=== PATIENT | male | born 1955 | race African-American/Black ===

== ENCOUNTER 2018-10-05 00:35 | Emergency (ER) | payer BC ==
[~2018-10-05] VITALS: Ht 167.6 cm; Wt 86.2 kg
[~2018-10-05 00:35] MED LIST: DOXA2TAB PO; GABA-531 PO; LEVO500T20 PO; MORP30TA PO; NOR10 PO; SOM350 PO; TAMS-11 PO
[2018-10-05 00:43] VITALS: BP_SYST 153
== END 2018-10-05 01:00 | disposition home or self-care (01) ==
LOC: SED 00:35
DX: G62.9 Polyneuropathy, unspecified (principal); E11.9 Type 2 diabetes mellitus without complications; I10 Essential (primary) hypertension; Z79.899 Other long term (current) drug therapy
CPT/HCPCS: 99283

== ENCOUNTER 2019-09-19 21:09 | Inpatient (IN) | payer BC ==
[~2019-09-19] VITALS: Ht 167.6 cm; Wt 88.0 kg
[2019-09-19 22:00] VITALS: BP_SYST 153
--- NOTE | 2019-09-19 22:18 | NUR ---
Pt ambulatory to bed 1 for evaluation
[2019-09-19 22:40] LABS: BILIRUBIN,URINE NEGATIVE (NEGATIVE); CLARITY/URINE CLEAR (CLEAR); COLOR,URINE YELLOW (YELLOW); GLUCOSE,URINE 2+ (NEGATIVE); KETONES,URINE TRACE (NEGATIVE); LEUKOCYTE ESTERASE ,URINE NEGATIVE (NEGATIVE); NITRITE, URINE NEGATIVE (NEGATIVE); PROTEIN URINE 1+ (NEGATIVE); UROBILINOGEN,URINE 0.2 (0.2-1.0)
[2019-09-19 22:43] LABS: BLOOD, URINE TRACE (NEGATIVE)
[2019-09-19 22:48] LABS: WBC,URINE 0-3 /HPF (0-3)
[2019-09-19 22:49] LABS: BACTERIA,URINE FEW /HPF (None Seen)
--- NOTE | 2019-09-19 23:10 | NUR ---
# 20 gauge angiocath placed to RT AC. Use of asceptic technique. Opsite placed over site. Blood return noted. Blood for lab drawn from site. Flushed with 10 cc of normal saline. No evidence of infiltration noted. Patient tolerated well.
[2019-09-19] MEDS ORDERED: MORPHINE 4 MG/ML INJ. SYRINGE IVP ONE (23:15)
[2019-09-19] MEDS ORDERED: ONDANSETRON HCL 4 MG/2 ML VIAL IVP ONE (23:15)
[2019-09-19] MEDS ORDERED: NACL 0.9% 1,000 ML IV ONE (23:15)
--- NOTE | 2019-09-19 23:15 | NUR ---
Pt 64 YO male A&Ox4 C/O abdominal pain x 1 day. Pt reported recent diagnosis of kidney stones by his PCP. Pt denies any urinary symptoms, N/V or any other compaints at this time. Will continue to monitor.
[2019-09-19 23:25] LABS: BASOPHILS % (AUTO) 0.4 % (0.0-2.0); EOSINOPHILS # (AUTO) 0.1 K/uL (0.0-0.4); EOSINOPHILS % (AUTO) 0.8 % (0.0-4.0); HEMATOCRIT 37.7 % (36-54); HEMOGLOBIN 13.1 g/dL (14.0-18.0); LYMPHOCYTES # (AUTO) 1.7 K/uL (1.0-5.5); LYMPHOCYTES % (AUTO) 17.7 % (20.5-51.5); MEAN CORPUSCULAR HEMOGLOBIN 32 pg (27-31); MEAN CORPUSCULAR HGB CONC 35 % (32-36); MEAN CORPUSCULAR VOLUME 93 fL (79.0-98.0); MONOCYTES # (AUTO) 0.4 K/uL (0.0-1.0); MONOCYTES % (AUTO) 4.1 % (1.7-9.3); NEUTROPHILS # (AUTO) 7.6 K/uL (1.8-7.7); PLATELET COUNT (AUTO) 247 K/uL (130-430); RED BLOOD CELL COUNT(AUTO) 4.05 MIL/uL (4.2-6.2); RED CELL DISTRIBUTION WIDTH 12.4 % (9.0-15.0); WHITE BLOOD COUNT (AUTO) 9.8 K/uL (4.8-10.8)
[2019-09-19 23:34] LABS: INR 0.9 (0.80-1.20); PROTHROMBIN TIME 9.1 SECS (9.5-12.5)
--- NOTE | 2019-09-19 23:36 | NUR ---
Pt has been medicated with IV Fluids, Zofran and Morphine for abdominal pain. Will continue to monitor.
--- NOTE | 2019-09-19 23:42 | NUR ---
Patient transported to radiology via gurney, accompanied by rad staff.
[2019-09-19 23:43] LABS: CALCIUM 8.8 mg/dL (8.4-11.0); CREATININE 1.01 mg/dL (0.55-1.30); POTASSIUM 3.7 mmol/L (3.5-5.1)
[2019-09-19 23:49] LABS: ALBUMIN 3.6 g/dL (3.4-4.8); TOTAL BILIRUBIN 0.4 mg/dL (0.0-1.0)
--- NOTE | 2019-09-19 23:55 | NUR ---
Pt returned in stable condition
[2019-09-20] MEDS ORDERED: fentaNYL CITRATE/PF 100 MCG/2 ML AMP IVP ONE (00:15)
[2019-09-20] MEDS ORDERED: LIP10 PO (00:17)
[2019-09-20] MEDS ORDERED: MORP15TA PO (00:19)
[2019-09-20] MEDS ORDERED: ASPI-1153 PO (00:20)
[2019-09-20] MEDS ORDERED: REPA0.5T4 PO (00:20)
--- NOTE | 2019-09-20 01:28 | NUR ---
Pt is resting in bed and states relief after medication administration
--- NOTE | 2019-09-20 01:54 | NUR ---
Patient will be admitted to care of Dr. Dodd. Admitted to telemetry unit. Will go to room 101B. Belongings list completed. Complete and up to date summary report printed. SBAR report to be given at bedside with opportunity for questions.
--- NOTE | 2019-09-20 02:02 | NUR ---
ADMISSION NOTE Received patient from ER via [facility] under the care of Ju. Patient admitted with diagnosis of Pancreatitis. Patient is awake, alert, oriented X 4. Patient oriented to hospital room, call light, toileting, pain management and safety-teach back done. Patient informed that his nurse will be Ava PEDERSON and that his room number is 101B. Call light within reach. Will continue to monitor patient condition.
[2019-09-20 02:07] VITALS: BP_SYST 153
--- NOTE | 2019-09-20 02:18 | NUR ---
Transfer to telemetry via ACLS protocol. Licensed nurse present. IV present no signs or symptoms of infiltration.
--- NOTE | 2019-09-20 02:27 | NUR ---
SPOKE TO DR. CASTRO REGARDING PT'S REPORT OF SEVERE ABDOMINAL PAIN. NEW ORDER RECEIVED. WILL CARRY OUT.
[2019-09-20] MEDS ORDERED: HYDROmorphone 1 MG INJ. 1 MG/ML AMPUL IVP ONE (02:30)
--- NOTE | 2019-09-20 02:41 | NUR ---
PAIN/DILAUDID DILAUDID 1 MG IVP ADMINISTERED FOR PT'S SEVERE PAIN ORDERED ONE TIME DOSE. MEDICATION ACTIONS AND POTENTIAL SIDE EFFECTS EXPLAINED, PT VERBALIZED UNDERSTANDING. NO S/S OF ACUTE DISTRESS. SAFETY MAINTAINED. WILL MONITOR.
[2019-09-20] MEDS ORDERED: HYDROmorphone 1 MG INJ. 1 MG/ML AMPUL IM PRN (04:00)
--- NOTE | 2019-09-20 04:00 | NUR ---
DR. CASTRO ROUNDS PT SEEN AND EXAMINED.
[2019-09-20] MEDS ORDERED: NACL 0.9% 1,000 ML IV SCH (04:01)
[2019-09-20] MEDS ORDERED: ONDANSETRON HCL 4 MG/2 ML VIAL IVP PRN (04:15)
[2019-09-20] MEDS ORDERED: HYDROmorphone 1 MG INJ. 1 MG/ML AMPUL IVP PRN (04:15)
[2019-09-20] MEDS ORDERED: NACL 0.9% 1,000 ML IV ONE (04:15)
[2019-09-20] MEDS ORDERED: hydrALAZINE HCL 20 MG/ML VIAL IVP PRN (04:15)
[2019-09-20] MEDS: HYDROmorphone 2 MG/ML VIAL IVP PRN ×3 (04:51→22:23)
--- NOTE | 2019-09-20 04:51 | NUR ---
PAIN/DILAUDID DILAUDID 1 MG IVP ADMINISTERED FOR PT'S SEVERE PAIN ORDERED PRN. MEDICATION ACTIONS AND POTENTIAL SIDE EFFECTS EXPLAINED, PT VERBALIZED UNDERSTANDING. NO S/S OF ACUTE DISTRESS. SAFETY MAINTAINED. WILL MONITOR.
--- NOTE | 2019-09-20 05:10 | NUR ---
CONSULTATION PAGED/CALLED Reason for Consultation: SEVERE PANCREATITIS Person Who was Notified: LILA Consulting Physician: PETER. DOCTOR ADAM IS INSTALLATION MANAGER Senior Cytotechnologist Specialty: Ordering Physician: KIKI
[2019-09-20] MEDS: PIPERACILLIN/TAZO 3.375/DEX-IS 50 ML IV SCH ×4 (05:52→23:36)
--- NOTE | 2019-09-20 05:52 | NUR ---
ZOSYN ADMINISTERED SCHEDULED. NO S/S OF ADVERSE REACTION NOTED.
[2019-09-20] MEDS ORDERED: PIPERACILLIN/TAZOBACTAM 3.375 GM/VIAL (ZOSYN) IV ONE (05:58)
[2019-09-20] MEDS: INSULIN REGULAR, HUMAN 100 UNITS/ML, 10 ML VIAL (humuLIN R) SUBCUT PRN (06:18)
--- NOTE | 2019-09-20 06:18 | NUR ---
ACCUCHECK BLOOD SUGAR OF 191, PER MD ORDER NO INSULIN COVERAGE WHILE NPO.
--- NOTE | 2019-09-20 06:54 | NUR ---
CLOSING NOTE PATIENT IS STABLE AT THIS TIME. NO S/S OF RESPIRATORY DISTRESS. CALL LIGHT IN REACH. BED IS LOCKED, ALARMED, AND THE LOWEST POSITION. ALL NEEDS MET. WILL CONTINUE TO MONITOR UNTIL REPORT IS GIVEN TO AM NURSE BY BEDSIDE.
[2019-09-20 06:57] LABS: BASOPHILS % (AUTO) 0.4 % (0.0-2.0); EOSINOPHILS # (AUTO) 0.1 K/uL (0.0-0.4); EOSINOPHILS % (AUTO) 1.1 % (0.0-4.0); HEMATOCRIT 36.4 % (36-54); HEMOGLOBIN 12.7 g/dL (14.0-18.0); LYMPHOCYTES # (AUTO) 1.9 K/uL (1.0-5.5); LYMPHOCYTES % (AUTO) 19.2 % (20.5-51.5); MEAN CORPUSCULAR HEMOGLOBIN 32 pg (27-31); MEAN CORPUSCULAR HGB CONC 35 % (32-36); MEAN CORPUSCULAR VOLUME 93 fL (79.0-98.0); MONOCYTES # (AUTO) 0.6 K/uL (0.0-1.0); MONOCYTES % (AUTO) 5.7 % (1.7-9.3); NEUTROPHILS # (AUTO) 7.2 K/uL (1.8-7.7); NEUTROPHILS % (AUTO) 73.6 % (40.0-70.0); PLATELET COUNT (AUTO) 237 K/uL (130-430); RED BLOOD CELL COUNT(AUTO) 3.93 MIL/uL (4.2-6.2); RED CELL DISTRIBUTION WIDTH 12.6 % (9.0-15.0); WHITE BLOOD COUNT (AUTO) 9.8 K/uL (4.8-10.8)
[2019-09-20 07:29] LABS: ALBUMIN 3.2 g/dL (3.4-4.8); CALCIUM 8.4 mg/dL (8.4-11.0); CREATININE 0.72 mg/dL (0.55-1.30); POTASSIUM 3.6 mmol/L (3.5-5.1); TOTAL BILIRUBIN 0.6 mg/dL (0.0-1.0)
--- NOTE | 2019-09-20 07:35 | NUR ---
OPENING NOTES: RECEIVED PATIENT FORM DINNER COOK NURSE. PATIENT IS ASLEEP LAYING DOWN IN BED. PATIENT IS TOLERATING OXYGEN ON ROOM AIR WITH NO SIGNS OF INFILTRATION NOTED. IV SITE IS PATENT WITH NO SIGNS OF INFILTRATION NOTED. PATIENT IN STABLE CONDITION. SAFETY, FALL AND ASPIRATION PRECAUTIONS ARE IN PLACE. BED LOCKED IN LOWEST POSITION WITH CALL LIGHT IN REACH. WILL CONTINUE TO MONITOR PATIENT FOR ANY CHANGES.
[2019-09-20] MEDS: PANTOPRAZOLE SODIUM 40 MG/VIAL (PROTONIX) IVP SCH (08:12)
[2019-09-20] MEDS: ATORVASTATIN 10 MG TABLET PO SCH (08:12)
[2019-09-20] MEDS: amLODIPine BESYLATE 10 MG TABLET PO SCH (08:13)
[2019-09-20] MEDS: TAMSULOSIN HCL 0.4 MG CAP PO SCH (08:13)
[2019-09-20] MEDS: HYDROmorphone 1 MG INJ. 1 MG/ML AMPUL IVP PRN ×3 (08:14→15:53)
[2019-09-20 08:21] VITALS: BP_SYST 143
[2019-09-20] MEDS ORDERED: LR 1,000 ML IV ONE (08:30)
[2019-09-20 08:47] LABS: CHOLESTEROL 128 mg/dL (<200); HDL CHOLESTEROL 38 mg/dL (>45); LDL CHOLESTEROL 59 mg/dL (<100); TRIGLYCERIDES 151 mg/dL (30-150)
[2019-09-20] MEDS ORDERED: ASPIRIN 81 MG TABLET(ECOTRIN) PO SCH (09:00)
--- NOTE | 2019-09-20 10:05 | NUR ---
RN ROUNDS: PATIENT IS ASLEEP LAYING DOWN IN BED. NO SIGNS OF DISTRESS OR SHORTNESS OF BREATH NOTED. IV SITE IS PATENT AND RUNNING FLUIDS ORDERED. PATIENT IN STABLE CONDITION.
[2019-09-20 12:10] VITALS: BP_SYST 136
--- NOTE | 2019-09-20 12:10 | NUR ---
RN ROUNDS: PATIENT IS AWAKE AND ALERT x4 LAYING DOWN IN BED. PATIENT STATES HE IS IN PAIN. PAIN MEDICATION GIVEN. PATIENT IS TOLERATING OXYGEN AT ROOM AIR. NO SIGNS OF DISTRESS OR SHORTNESS OF BREATH NOTED. PATIENT IN STABLE CONDITION. WILL CONTINUE TO MONITOR PATIENT FOR ANY CHANGES.
[2019-09-20] MEDS: LR 1,000 ML IV SCH ×3 (12:56→23:31)
--- NOTE | 2019-09-20 14:35 | NUR ---
RN ROUNDS: PATIENT IS ASLEEP LAYING DOWN IN BED. NO SIGNS OF DISTRESS OR SHORTNESS OF BREATH NOTED. PATIENT IN STABLE CONDITION. WILL CONTINUE TO MONITOR PATIENT FOR ANY CHANGES.
[2019-09-20 16:00] VITALS: BP_SYST 149
--- NOTE | 2019-09-20 16:41 | NUR ---
RN ROUNDS: PATIENT IS AWAKE AND ALERT x4 LAYING DOWN IN BED. NO SIGNS OF DISTRESS OR SHORTNESS OF BREATH NOTED. PATIENT IN STABLE CONDITION. WILL CONTINUE TO MONITOR PATIENT FOR ANY CHANGES.
--- NOTE | 2019-09-20 18:51 | NUR ---
CLOSING NOTES: PATIENT IS AWAKE AND ALERT x4 LAYING DOWN IN BED. FAMILY AT BEDSIDE. PATIENT STATES HIS PAIN IS INCREASING. WILL INFORM INSIDE SALES PERSON NURSE WHEN THE NEXT PAIN MEDICATION IS DUE. PATIENT IS TOLERATING OXYGEN AT ROOM AIR WITH NO SIGNS OF INFILTRATION NOTED. IV SITE IS PATENT AND RUNNING FLUIDS ORDERED. PATIENT IN STABLE CONDITION. SAFETY, FALL AND ASPIRATION PRECAUTIONS REMAINED IN PLACE THROUGHOUT THE SHIFT. BED LOCKED IN LOWEST POSITION WITH CALL LIGHT IN REACH. WILL ENDORSE PATIENT CARE TO ONCOMING INSIDE SALES PERSON NURSE.
--- NOTE | 2019-09-20 19:25 | NUR ---
OPENING NOTE RECEIVED CARE OF PT AND SBAR REPORT. PT IS AAOX4, AMBULATING IN THE HALLWAY WITH FAMILY. PT IS TOLERATING ACTIVITY WELL, NO S/S OF ACUTE DISTRESS, BREATHING IS EVEN AND UNLABORED. PT REPORTING PAIN IS INCREASING. TO MEDICATE FOR PAIN. IV FLUIDS ARE INFUSING AT ORDERED RATE, NO S/S OF INFILTRATION TO IV SITE. SAFETY PRECAUTIONS MAINTAINED. WILL MONITOR.
--- NOTE | 2019-09-20 19:57 | NUR ---
DILAUDID/ACCUCHECK PT RESTING IN BED AT THIS TIME WITH FAMILY AT BEDSIDE. PT GIVEN DILAUDID 1 MG IVP FOR REPORT OF SEVERE PAIN. MEDICATION ACTIONS AND POTENTIAL SIDE EFFECTS DISCUSSED. ACCUCHECK SHOWS BLOOD SUGAR OF 134. POC DISCUSSED WITH PT, PT VERBALIZED UNDERSTANDING. SAFETY PRECAUTIONS ARE IN PLACE: BED IS LOCKED IN LOWEST POSITION, SIDE RAILS UP X2, CALL LIGHT IS WITH PT. WILL MONITOR.
[2019-09-20 20:00] VITALS: BP_SYST 130
--- NOTE | 2019-09-20 23:36 | NUR ---
MED PASS BLOOD SUGAR OF 147, NO INSULIN COVERAGE INDICATED. SCHEDULED JUAQUIN NEWMAN IVPB ORDERED. NO S/S OF ADVERSE REACTION. SAFETY MAINTAINED. WILL MONITOR.
[2019-09-21] VITALS: BP_SYST 132
[2019-09-21] MEDS: HYDROmorphone 2 MG/ML VIAL IVP PRN ×4 (02:04→21:13)
--- NOTE | 2019-09-21 02:12 | NUR ---
DILAUDID/ACCUCHECK PT RESTING IN BED AND REQUESTING PAIN MEDICATION. PT GIVEN DILAUDID 1 MG IVP FOR REPORT OF SEVERE PAIN. MEDICATION ACTIONS AND POTENTIAL SIDE EFFECTS DISCUSSED. ACCUCHECK SHOWS BLOOD SUGAR OF 158. SAFETY PRECAUTIONS ARE IN PLACE: BED IS LOCKED IN LOWEST POSITION, SIDE RAILS UP X2, CALL LIGHT IS WITH PT. WILL MONITOR.
--- NOTE | 2019-09-21 03:45 | NUR ---
SLEEPING PATIENT IS ASLEEP LAYING DOWN IN BED. NO SIGNS OF DISTRESS OR SHORTNESS OF BREATH NOTED. PATIENT IN STABLE CONDITION. WILL CONTINUE TO MONITOR PATIENT FOR ANY CHANGES.
[2019-09-21] MEDS: PIPERACILLIN/TAZO 3.375/DEX-IS 50 ML IV SCH ×4 (05:23→23:02)
[2019-09-21] MEDS: LR 1,000 ML IV SCH ×4 (05:23→23:16)
--- NOTE | 2019-09-21 05:30 | NUR ---
FLU SHOT ADMINISTERED MEDICATION AND POTENTIAL SIDE EFFECTS EXPLAINED TO PT, PT VERBALIZED UNDERSTANDING. PT TOLERATED WELL. NO S/S OF ACUTE DISTRESS. SAFETY MAINTAINED. WILL MONITOR.
[2019-09-21] MEDS ORDERED: FLU VACC QS2019-20 36MOS UP/PF 60 MCG/0.5 ML SYRINGE I.M. PRN (07:00)
[2019-09-21 07:50] LABS: BASOPHILS # (AUTO) 0.1 K/uL (0.0-0.2); BASOPHILS % (AUTO) 0.5 % (0.0-2.0); EOSINOPHILS # (AUTO) 0.2 K/uL (0.0-0.4); EOSINOPHILS % (AUTO) 1.7 % (0.0-4.0); HEMATOCRIT 37.3 % (36-54); HEMOGLOBIN 12.7 g/dL (14.0-18.0); LYMPHOCYTES # (AUTO) 1.7 K/uL (1.0-5.5); LYMPHOCYTES % (AUTO) 15.3 % (20.5-51.5); MEAN CORPUSCULAR HEMOGLOBIN 32 pg (27-31); MEAN CORPUSCULAR HGB CONC 34 % (32-36); MEAN CORPUSCULAR VOLUME 94 fL (79.0-98.0); MONOCYTES # (AUTO) 0.7 K/uL (0.0-1.0); MONOCYTES % (AUTO) 6.9 % (1.7-9.3); NEUTROPHILS # (AUTO) 8.1 K/uL (1.8-7.7); NEUTROPHILS % (AUTO) 75.6 % (40.0-70.0); PLATELET COUNT (AUTO) 236 K/uL (130-430); RED BLOOD CELL COUNT(AUTO) 3.99 MIL/uL (4.2-6.2); RED CELL DISTRIBUTION WIDTH 12.5 % (9.0-15.0); WHITE BLOOD COUNT (AUTO) 10.8 K/uL (4.8-10.8)
[2019-09-21 08:00] VITALS: BP_SYST 142
--- NOTE | 2019-09-21 08:00 | NUR ---
ASSUMPTION OF CARE: RECEIVED PT A/A/OX4, DX: PAIN, R/T PANCREATITIS, C/O PAIN 5/10 VIA NUMERIC SCALE TO ABD AREA, WILL MEDICATE PER M.D., ORDERS, AFEBRILE, NO DISTRESS NOTED AT THIS TIME, ORIENTED TO UNIT, CALL LIGHT PLACED WITHIN REACH, WILL CONT' TO MONITOR AND ASSESS.
[2019-09-21 08:09] LABS: ALBUMIN 3.2 g/dL (3.4-4.8); CALCIUM 9.1 mg/dL (8.4-11.0); CREATININE 0.88 mg/dL (0.55-1.30); POTASSIUM 3.6 mmol/L (3.5-5.1); TOTAL BILIRUBIN 0.8 mg/dL (0.0-1.0)
[2019-09-21] MEDS: PANTOPRAZOLE SODIUM 40 MG/VIAL (PROTONIX) IVP SCH (08:34)
[2019-09-21] MEDS: ATORVASTATIN 10 MG TABLET PO SCH (08:34)
[2019-09-21] MEDS: amLODIPine BESYLATE 10 MG TABLET PO SCH (08:34)
[2019-09-21] MEDS: TAMSULOSIN HCL 0.4 MG CAP PO SCH (08:34)
[2019-09-21] MEDS: HYDROmorphone 1 MG INJ. 1 MG/ML AMPUL IVP PRN (08:35)
--- NOTE | 2019-09-21 09:00 | NUR ---
WOOD PRESERVING PLANT LABORER: MORNING MEDS GIVEN, PER ORDERED BY Chel, TOLERATED WELL, WILL CONT' TO MONITOR AND ASSESS.
[2019-09-21 10:10] LABS: HEPATITIS A AB, IgM Negative (Negative); HEPATITIS B CORE AB, IgM Negative (Negative); HEPATITIS B SURFACE AG Negative (Negative)
--- NOTE | 2019-09-21 11:00 | NUR ---
GLUCOSE MONITORING: BLOOD SUGAR JNKUQ=[id number], PT REMAINS NPO, NO COVERAGE GIVEN, TOLERATING WELL, WILL CONT' WITH POC
[2019-09-21 12:04] VITALS: BP_SYST 130
--- NOTE | 2019-09-21 15:00 | NUR ---
GLUCOSE MONITORING: BLOOD SUGAR LOKCI=830, NO COVERAGE GIVEN, TOLERATING WELL, WILL CONT' WITH POC
--- NOTE | 2019-09-21 19:00 | NUR ---
GLUCOSE MONITORING: BLOOD SUGAR YCSMS=500, 2 UNIT REGULAR INSULIN GIVEN SQ, TOLERATING WELL, WILL CONT' WITH POC
[2019-09-21 19:30] VITALS: BP_SYST 130
--- NOTE | 2019-09-21 19:30 | NUR ---
INITIAL NOTES PATIENT IS RESTING IN BED AND STABLE. NO S/S OF RESPIRATORY DISTRESS NOTED. PATIENT SUCCESSFULLY DEMONSTRATES USAGE OF CALL LIGHT. BED IS LOCKED, ALARMED, AND AT THE LOWEST POSITION. FALL, SAFETY, ASPIRATION, AND RESPIRATORY PRECAUTIONS WILL BE IN PLACE THROUGHOUT THE SHIFT. PLAN OF CARE DISCUSSED WITH PATIENT.
[2019-09-21] MEDS: INSULIN REGULAR, HUMAN 100 UNITS/ML, 10 ML VIAL (humuLIN R) SUBCUT PRN ×2 (19:53→23:09)
--- NOTE | 2019-09-21 21:30 | NUR ---
PATIENT IS RESTING IN BED AND STABLE. NO S/S OF RESPIRATORY DISTRESS NOTED. CALL LIGHT IN REACH. BED IS LOCKED, AND AT THE LOWEST POSITION.
--- NOTE | 2019-09-21 23:06 | NUR ---
GLUCOSE CHECK DONE AT THIS TIME. GLUCOSE IS 153. 2 UNITS OF REGULAR INSULIN GIVEN
--- NOTE | 2019-09-21 23:30 | NUR ---
PATIENT IS WATCHING TV IN BED AND STABLE. NO S/S OF RESPIRATORY DISTRESS NOTED. CALL LIGHT IN REACH. BED IS LOCKED, AND AT THE LOWEST POSITION.
--- NOTE | 2019-09-22 01:30 | NUR ---
PATIENT IS SLEEPING IN BED AND STABLE. NO S/S OF RESPIRATORY DISTRESS NOTED. CALL LIGHT IN REACH. BED IS LOCKED, AND AT THE LOWEST POSITION.
[2019-09-22 01:34] VITALS: BP_SYST 141
[2019-09-22] MEDS: HYDROmorphone 2 MG/ML VIAL IVP PRN ×2 (01:46→23:07)
--- NOTE | 2019-09-22 01:52 | NUR ---
GLUCOSE CHECK/PAIN MEDICATION GIVEN AT THIS TIME. GLUCOSE IS 123. NO INTERVENTION NEEDED. PAIN MEDICATION GIVEN AT THIS TIME.
--- NOTE | 2019-09-22 03:08 | NUR ---
PATIENT IS SLEEPING IN BED AND STABLE. NO S/S OF RESPIRATORY DISTRESS NOTED. CALL LIGHT IN REACH. BED IS LOCKED, AND AT THE LOWEST POSITION.
--- NOTE | 2019-09-22 04:17 | NUR ---
PATIENT IS SLEEPING IN BED AND STABLE. NO S/S OF RESPIRATORY DISTRESS NOTED. CALL LIGHT IN REACH. BED IS LOCKED AND AT THE LOWEST POSITION.
[2019-09-22] MEDS: LR 1,000 ML IV SCH ×3 (06:18→21:00)
[2019-09-22] MEDS: PIPERACILLIN/TAZO 3.375/DEX-IS 50 ML IV SCH ×4 (06:18→23:04)
--- NOTE | 2019-09-22 06:32 | NUR ---
CLOSING NOTES PATIENT IS STABLE AND IN BED. NO S/S OF RESPIRATORY DISTRESS NOTED. CALL LIGHT IN REACH. BED IS LOCKED, ALARMED, AND AT THE LOWEST POSITION. FALL, SAFETY, ASPIRATION, AND RESPIRATORY PRECAUTIONS HAS BEEN IN PLACE THROUGHOUT THE SHIFT. WILL CONTINUE TO MONITOR UNTIL REPORT IS GIVEN TO AM NURSE BY BEDSIDE.
[2019-09-22 06:34] LABS: BASOPHILS % (AUTO) 0.4 % (0.0-2.0); EOSINOPHILS # (AUTO) 0.3 K/uL (0.0-0.4); HEMATOCRIT 37.6 % (36-54); HEMOGLOBIN 13.1 g/dL (14.0-18.0); LYMPHOCYTES # (AUTO) 2.4 K/uL (1.0-5.5); LYMPHOCYTES % (AUTO) 27.1 % (20.5-51.5); MEAN CORPUSCULAR HEMOGLOBIN 32 pg (27-31); MEAN CORPUSCULAR HGB CONC 35 % (32-36); MEAN CORPUSCULAR VOLUME 93 fL (79.0-98.0); MONOCYTES # (AUTO) 0.6 K/uL (0.0-1.0); MONOCYTES % (AUTO) 7.1 % (1.7-9.3); NEUTROPHILS # (AUTO) 5.6 K/uL (1.8-7.7); NEUTROPHILS % (AUTO) 62.4 % (40.0-70.0); PLATELET COUNT (AUTO) 252 K/uL (130-430); RED BLOOD CELL COUNT(AUTO) 4.03 MIL/uL (4.2-6.2); RED CELL DISTRIBUTION WIDTH 12.6 % (9.0-15.0)
[2019-09-22 06:49] LABS: ALBUMIN 3.1 g/dL (3.4-4.8); CALCIUM 9.3 mg/dL (8.4-11.0); CREATININE 0.83 mg/dL (0.55-1.30); POTASSIUM 3.4 mmol/L (3.5-5.1); TOTAL BILIRUBIN 0.6 mg/dL (0.0-1.0)
[2019-09-22 08:00] VITALS: BP_SYST 149
--- NOTE | 2019-09-22 08:00 | NUR ---
Initial notes- In bed, awake. on clear liquid diet. complains of moderate abdominal pain. will medicate. IVF infusing well. ambulate with steady gait. Call light in reach. Enc. to call for help as needed.
[2019-09-22] MEDS: PANTOPRAZOLE SODIUM 40 MG/VIAL (PROTONIX) IVP SCH (08:17)
[2019-09-22] MEDS: TAMSULOSIN HCL 0.4 MG CAP PO SCH (08:17)
[2019-09-22] MEDS: amLODIPine BESYLATE 10 MG TABLET PO SCH (08:17)
[2019-09-22] MEDS: HYDROmorphone 1 MG INJ. 1 MG/ML AMPUL IVP PRN (08:18)
[2019-09-22] MEDS: ATORVASTATIN 10 MG TABLET PO SCH (08:18)
[2019-09-22 11:43] VITALS: BP_SYST 123
--- NOTE | 2019-09-22 11:44 | NUR ---
Notes- In bed, talking to visitor at bedside. Denies any pain at this time. administer antibiotics. no complaints. enc to call for help as needed.
--- NOTE | 2019-09-22 14:58 | NUR ---
Dietitian Recommendations * Consider advance to low-fat, CCHO, cardiac diet if/when medically appropriate LP, RD Please refer to Nutrition Assessment for details. Addendum: 09/22/19 at [address] Amended: Links added.
--- NOTE | 2019-09-22 15:30 | NUR ---
Sitting in the chair, watching tv. denies any pain.
--- NOTE | 2019-09-22 18:12 | NUR ---
Notes- Sitting in the chair, eating dinner, has full liquid tonight, advance to soft diet in am as ordered byRebekah Benjamin. denies any pain at this time. all needs meet through out shift. will monitor.
--- NOTE | 2019-09-22 19:15 | NUR ---
OPENING NOTE Late entry due to patient care. Bedside report received from daysidft nurse. Patient received sitting on a chair at bedside. No s/s of acute distress noted. Patient denies pain. Breathing is even and unlabored. IVF infusing well, IV site patent, no signs of infiltration or infection noted. Skin warm and dry to touch, no s/s of hypoglycemia noted. Call light with patient. Will continue to monitor.
[2019-09-22 20:00] VITALS: BP_SYST 140
--- NOTE | 2019-09-22 21:00 | NUR ---
WALKING AROUND AT HALLWAY Patient walking with IV pole, gait is steady, no signs of discomfort. Patient denies pain at this time. Patient tolerating well. Will continue to monitor and reassess.
[2019-09-22] MEDS: INSULIN REGULAR, HUMAN 100 UNITS/ML, 10 ML VIAL (humuLIN R) SUBCUT PRN (21:02)
--- NOTE | 2019-09-22 23:07 | NUR ---
PAIN Patient complained of pain, PRN medication to be administered. Will continue to monitor and reassess.
[2019-09-23] VITALS: BP_SYST 142
--- NOTE | 2019-09-23 01:00 | NUR ---
ROUNDS Patient asleep, no signs of discomfort noted. Chest rise and fall even bilaterally. IVF infusing well. Call light with patient. Will continue to monitor.
[2019-09-23] MEDS: LR 1,000 ML IV SCH ×2 (02:52→08:58)
--- NOTE | 2019-09-23 03:00 | NUR ---
ROUNDS Patient sleeping at this time. No s/s of acute distress noted. Breathing is even and unlabored. IVF infusing well. Call light with patient. Bed alarm on. Will continue to monitor.
[2019-09-23] MEDS: HYDROmorphone 1 MG INJ. 1 MG/ML AMPUL IVP PRN (03:52)
--- NOTE | 2019-09-23 05:00 | NUR ---
ROUNDS Patient in bed sleeping comfortably at this time. No signs of discomfort noted. Chest rise and fall even bilaterally. IVF infusing well. Call light with patient. Will continue to monitor.
[2019-09-23] MEDS: PIPERACILLIN/TAZO 3.375/DEX-IS 50 ML IV SCH (06:15)
--- NOTE | 2019-09-23 06:33 | NUR ---
CLOSING NOTES Patient in bed resting. No s/s of acute distress noted. Breathing even and unlabored. IVF infusing well, IV site patent, no signs of infiltration or infection noted. Skin warm and dry to touch, no s/s of hypoglycemia noted. All needs met throughout shift. Fall and safety precautions maintained throughout shift. Will continue to monitor until patient care is endorsed to oncoming dayshift nurse.
--- NOTE | 2019-09-23 07:30 | NUR ---
OPENING NOTES, RECEIVED PT IN BED, PT IS AAOX2, DENIES PAIN, NO SOB, NO RESP DISTRESS. NO FEVER, BP ELEVATED, WILL MEDICATE. IV ACCESS INTACT AND PATENT. SAFETY PRECAUTION IN PLACE. CALL LIGHT IN REACH. BED IN LOW POSITION . WILL CONT TO MONITOR.
[2019-09-23 08:00] VITALS: BP_SYST 145
[2019-09-23] MEDS: amLODIPine BESYLATE 10 MG TABLET PO SCH (08:58)
[2019-09-23] MEDS: TAMSULOSIN HCL 0.4 MG CAP PO SCH (08:58)
[2019-09-23] MEDS: ATORVASTATIN 10 MG TABLET PO SCH (08:58)
[2019-09-23] MEDS: PANTOPRAZOLE SODIUM 40 MG/VIAL (PROTONIX) IVP SCH (08:59)
--- NOTE | 2019-09-23 10:00 | NUR ---
PT IN BED, RESTING COMFORTABLY.
[2019-09-23 10:11] VITALS: BP_SYST 145
--- NOTE | 2019-09-23 11:15 | NUR ---
D/C Patient Patient given medication reconciliation form and D/C instructions. Exit Care provided. Patient verbalized understanding. MD discussed with patient the results and treatment provided. Ambulatory with steady gait for discharge to home. Patient in stable condition, ID band removed. IV catheter removed, intact and dressing applied, no active bleeding. Rx of given. Patient educated on pain management. All belongings sent with patient.
--- NOTE | 2019-09-23 17:03 | NUR ---
OPENING NOTES, RECEIVED PT IN BED, PT IS AAOX4, DENIES PAIN, NO SOB, NO RESP DISTRESS. NO FEVER, IV FLUIDS INFUSING WELL. IV ACCESS INTACT AND PATENT. SAFETY PRECAUTION IN PLACE. CALL LIGHT IN REACH. BED IN LOW POSITION . WILL CONT TO MONITOR. Addendum: 09/23/19 at 1705 by Jensen Molina RN PLEASE DISREGARD THIS PT'S NOTES. WRONG TIME
== END 2019-09-23 11:15 | disposition home or self-care (01) | DRG 439 ==
LOC: SED 21:09 → STU 09-20 00:56 → SMU 09-20 10:46
PROVIDERS: ADMIT Internal Medicine Hospice and Palliative Medicine; ATTEND Internal Medicine Hospice and Palliative Medicine
DX: K85.90 Acute pancreatitis without necrosis or infection, unspecified (principal); E87.1 Hypo-osmolality and hyponatremia; G89.29 Other chronic pain; E11.9 Type 2 diabetes mellitus without complications; D64.9 Anemia, unspecified; E78.5 Hyperlipidemia, unspecified; I10 Essential (primary) hypertension; M54.5 Low back pain; Z83.3 Family history of diabetes mellitus; Z79.899 Other long term (current) drug therapy; Z79.82 Long term (current) use of aspirin
CPT/HCPCS: 36415; 76700-TC; 80053; 80061; 80074; 81000-TC; 82150-TC; 82962; 83690-TC; 85025; 85610-TC; 93306; 96361; 96374; 96375; 99285; C9113; J1170; J1815; J2270; J2405; J2543; J3010; J7030; J7060; J7120

== ENCOUNTER 2023-06-08 15:55 | Observation (INO) | payer OTHER ==
[~2023-06-08] VITALS: Ht 167.6 cm; Wt 85.3 kg
[2023-06-08 15:55] VITALS: BP_SYST 156; PULSE 101; RESP 18; TEMP 97.8; O2SAT 98
[~2023-06-08 15:55] MED LIST changes: +ASPI-1393 PO; -DOXA2TAB PO; -GABA-531 PO; -LEVO500T20 PO; +LIP10 PO; +MORP15TA PO; +REPA0.5T6 PO; -SOM350 PO
[2023-06-08 16:37] LABS: BASOPHILS # (AUTO) 0.1 K/uL (0.0-0.2); BASOPHILS % (AUTO) 0.9 % (0.0-2.0); EOSINOPHILS # (AUTO) 0.1 K/uL (0.0-0.4); EOSINOPHILS % (AUTO) 0.9 % (0.0-4.0); HEMATOCRIT 44.6 % (36-54); HEMOGLOBIN 15.4 g/dL (14.0-18.0); LYMPHOCYTES # (AUTO) 2.5 K/uL (1.0-5.5); LYMPHOCYTES % (AUTO) 30.2 % (20.5-51.5); MEAN CORPUSCULAR HEMOGLOBIN 33 pg (27-31); MEAN CORPUSCULAR HGB CONC 35 % (32-36); MEAN CORPUSCULAR VOLUME 94 fL (79.0-98.0); MONOCYTES # (AUTO) 0.5 K/uL (0.0-1.0); MONOCYTES % (AUTO) 6.5 % (1.7-9.3); NEUTROPHILS # (AUTO) 5.1 K/uL (1.8-7.7); NEUTROPHILS % (AUTO) 61.5 % (40.0-70.0); PLATELET COUNT (AUTO) 235 K/uL (130-430); RED BLOOD CELL COUNT(AUTO) 4.73 MIL/uL (4.2-6.2); RED CELL DISTRIBUTION WIDTH 12.8 % (9.0-15.0); WHITE BLOOD COUNT (AUTO) 8.2 K/uL (4.8-10.8)
[2023-06-08 16:44] LABS: ERYTHROCYTE SEDIMENTATION RATE 27 MM/HR (0-15)
[2023-06-08 16:48] LABS: ANION GAP 10 (5-15); CALCIUM 9.4 mg/dL (8.4-11.0); CARBON DIOXIDE 27 mmol/L (23-29); CHLORIDE 100 mmol/L (98-107); CREATININE 0.99 mg/dL (0.55-1.30); GFR AFRICAN AMERICAN 97 mL/min (>90); GFR NON AFRICAN-AMERICAN 80 mL/min (>90); GLUCOSE 357 mg/dL (74-106); INR 0.9 (0.80-1.20); POTASSIUM 3.9 mmol/L (3.5-5.1); PROTHROMBIN TIME 9.3 SECS (9.5-12.5); SODIUM SERUM 137 mmol/L (136-145); UREA NITROGEN, BLOOD 11 mg/dL (8-21)
[2023-06-08 17:06] LABS: HEMOGLOBIN A1C 6.92 % (<5.7)
[2023-06-08 17:21] LABS: ALANINE AMINOTRANSFERASE 48 U/L (12-78); ALBUMIN 3.7 g/dL (3.4-4.8); ASPARTATE AMINOTRANSFERASE 23 U/L (10-37); CHOLESTEROL 167 mg/dL (<200); HDL CHOLESTEROL 52 mg/dL (>45); PHOSPHORUS 3.1 mg/dL (2.7-4.5); TOTAL BILIRUBIN 0.3 mg/dL (0.0-1.0); TOTAL PROTEIN, SERUM 8.2 g/dL (6.4-8.3); TRIGLYCERIDES 419 mg/dL (30-150)
[2023-06-08 17:39] LABS: BILIRUBIN,URINE NEGATIVE (NEGATIVE); BLOOD, URINE NEGATIVE (NEGATIVE); CLARITY/URINE CLEAR (CLEAR); COLOR,URINE YELLOW (YELLOW); GLUCOSE,URINE 3+ (NEGATIVE); KETONES,URINE NEGATIVE (NEGATIVE); LEUKOCYTE ESTERASE ,URINE NEGATIVE (NEGATIVE); NITRITE, URINE NEGATIVE (NEGATIVE); PROTEIN URINE 1+ (NEGATIVE); UROBILINOGEN,URINE 0.2 (0.2-1.0)
[2023-06-08 17:52] LABS: BACTERIA,URINE RARE /HPF (None Seen); MUCUS,URINE None Seen /LPF (None Seen); RBC,URINE 0-3 /HPF (0-3); WBC,URINE 0-3 /HPF (0-3)
[2023-06-08 18:01] LABS: BARBITURATE, URINE NEGATIVE (NEG <=200); BENZODIAZEPINE, URINE NEGATIVE (NEG <=150); CANNABINOID, URINE NEGATIVE (NEG <=50); COCAINE, URINE NEGATIVE (NEG <=150); METHAMPHETAMINES SCREEN,URINE NEGATIVE (NEG <=500); OPIATE, URINE POSITIVE (NEG <=100); PHENCYCLIDINE SCREEN,URINE NEGATIVE (NEG <=25); URINE AMPHETAMINE NEGATIVE (NEG <=500); URINE METHADONE NEGATIVE (NEG <=200)
[2023-06-08 18:02] LABS: UR TRICYCLIC ANTIDEPRESSANTS NEGATIVE (NEG <=300); URINE OXYCODONE SCREEN NEGATIVE (NEG <=100); URINE PROPOXYPHENE SCREEN NEGATIVE (NEG <=300)
[2023-06-08 23:24] VITALS: BP_SYST 138; PULSE 95; RESP 20; TEMP 98.2
[2023-06-09] VITALS: BP_SYST 143; PULSE 84; RESP 16; TEMP 98.2; O2SAT 97
[2023-06-09 08:00] VITALS: BP_SYST 153; PULSE 79; RESP 18; TEMP 97.6; O2SAT 97
[2023-06-09 11:27] VITALS: BP_SYST 140; PULSE 94; RESP 15; TEMP 96.8; O2SAT 100
[2023-06-09] MEDS ORDERED: MORPHINE SULFATE 30 MG TABLET.SA PO ONE (13:15)
[2023-06-09] MEDS ORDERED: MORPHINE SULFATE 30 MG Immediate Release TABLET PO ONE (13:15)
[2023-06-09] MEDS ORDERED: IBUP-1969 PO (13:50)
[2023-06-09] MEDS ORDERED: SYN50 PO (13:50)
[2023-06-09] MEDS ORDERED: GLIP5TAB26 PO (13:50)
[2023-06-09] MEDS ORDERED: FLUT16SP16 NS (13:50)
[2023-06-09] MEDS ORDERED: METO25TA3 PO (13:50)
[2023-06-09] MEDS ORDERED: MULT-1165 PO (13:50)
[2023-06-09] MEDS ORDERED: VITD2000 PO (13:50)
[2023-06-09 15:24] VITALS: BP_SYST 137; PULSE 55; RESP 16; TEMP 98.9; O2SAT 100
[2023-06-09 20:00] VITALS: BP_SYST 134; PULSE 90; RESP 18; TEMP 98.8; O2SAT 98
[2023-06-09] MEDS ORDERED: MORPHINE SULFATE 30 MG Immediate Release TABLET PO PRN (23:15)
[2023-06-10 00:38] VITALS: BP_SYST 135; PULSE 91; RESP 18; TEMP 98.4
[2023-06-10] MEDS ORDERED: MORPHINE SULFATE 30 MG Immediate Release TABLET PO SCH (06:00)
[2023-06-10] MEDS ORDERED: LEVOTHYROXINE SODIUM 0.05 MG TABLET PO SCH (07:00)
[2023-06-10 07:44] LABS: BASOPHILS # (AUTO) 0.1 K/uL (0.0-0.2); EOSINOPHILS # (AUTO) 0.1 K/uL (0.0-0.4); EOSINOPHILS % (AUTO) 1.4 % (0.0-4.0); HEMATOCRIT 43.7 % (36-54); HEMOGLOBIN 14.9 g/dL (14.0-18.0); LYMPHOCYTES # (AUTO) 2.4 K/uL (1.0-5.5); LYMPHOCYTES % (AUTO) 28.5 % (20.5-51.5); MEAN CORPUSCULAR HEMOGLOBIN 32 pg (27-31); MEAN CORPUSCULAR HGB CONC 34 % (32-36); MEAN CORPUSCULAR VOLUME 94 fL (79.0-98.0); MONOCYTES # (AUTO) 0.7 K/uL (0.0-1.0); MONOCYTES % (AUTO) 8.1 % (1.7-9.3); NEUTROPHILS # (AUTO) 5.2 K/uL (1.8-7.7); PLATELET COUNT (AUTO) 242 K/uL (130-430); RED BLOOD CELL COUNT(AUTO) 4.65 MIL/uL (4.2-6.2); RED CELL DISTRIBUTION WIDTH 12.6 % (9.0-15.0); WHITE BLOOD COUNT (AUTO) 8.5 K/uL (4.8-10.8)
[2023-06-10 08:00] VITALS: BP_SYST 140; PULSE 92; RESP 17; TEMP 98; O2SAT 98
[2023-06-10 08:13] LABS: CALCIUM 10.2 mg/dL (8.4-11.0); CREATININE 0.96 mg/dL (0.55-1.30); POTASSIUM 4.3 mmol/L (3.5-5.1)
[2023-06-10] MEDS ORDERED: TAMSULOSIN HCL 0.4 MG CAP PO SCH (09:00)
[2023-06-10] MEDS ORDERED: MULTIVITS,CA,MINERALS/IRON/FA 1 TABLET PO SCH (09:00)
[2023-06-10] MEDS ORDERED: glipiZIDE XL 5 MG TAB ( GLUCOTROL XL) PO SCH (09:00)
[2023-06-10] MEDS ORDERED: IBUPROFEN 600 MG TABLET PO SCH (09:00)
[2023-06-10] MEDS ORDERED: CHOLECALCIFEROL (VITAMIN D3) 2,000 UNIT TABLET PO SCH (09:00)
[2023-06-10] MEDS ORDERED: amLODIPine BESYLATE 10 MG TABLET PO SCH (09:00)
[2023-06-10] MEDS ORDERED: FLUTICASONE PROPIONATE 50 mCg/SPRAY 16 GM NS SCH (09:00)
[2023-06-10] MEDS ORDERED: ATORVASTATIN 10 MG TABLET PO SCH (09:00)
[2023-06-10] MEDS ORDERED: INSULIN REGULAR, HUMAN 100 UNITS/ML, 3 ML VIAL (humuLIN R) SUBCUT PRN (10:15)
[2023-06-10] MEDS ORDERED: DEXTROSE 50%-WATER 50 ML DISP.SYRIN IVP PRN (11:15)
[2023-06-10] MEDS ORDERED: GLUCOSE (DEXTROSE) ORAL GEL -Adults PO PRN (11:15)
[2023-06-10] MEDS ORDERED: D5W 1,000 ML IV PRN (11:15)
[2023-06-10] MEDS ORDERED: ASPI-1393 PO (11:40)
[2023-06-10 12:00] VITALS: BP_SYST 138; PULSE 89; RESP 18; TEMP 98.2; O2SAT 99
[2023-06-10 12:04] VITALS: BP_SYST 138; PULSE 89; RESP 17; TEMP 98.2; O2SAT 98
[2023-06-10] MEDS ORDERED: METOPROLOL SUCCINATE 25 MG TAB.SR.24H (TOPROL XL) PO SCH (21:00)
[2023-06-11] MEDS ORDERED: NAPR-1172 PO (03:54)
== END 2023-06-10 12:30 | disposition home or self-care (01) ==
LOC: SED 15:55 → SMU 21:15
PROVIDERS: ADMIT Specialist; ATTEND Specialist
DX: I65.23 Occlusion and stenosis of bilateral carotid arteries (principal); I73.9 Peripheral vascular disease, unspecified; E66.9 Obesity, unspecified; I11.9 Hypertensive heart disease without heart failure; E11.9 Type 2 diabetes mellitus without complications; N40.0 Benign prostatic hyperplasia without lower urinary tract symptoms; E78.5 Hyperlipidemia, unspecified; E78.00 Pure hypercholesterolemia, unspecified; Z79.82 Long term (current) use of aspirin; Z79.899 Other long term (current) drug therapy
CPT/HCPCS: 80307; 80053; 80061; 81000; 81015; 81001; 83037; 83735; 84100; 84443; 85025 ×2; 85610; 85651; 84484; 36415 ×2; 93005; 71045; 70450; 70496; 70498; 76376; 99291; 82397; 70551; 96372; 80048; 82962; 93306; 97112; 97116; 97162; G0378 ×3; J2274 ×2

== ENCOUNTER 2023-06-11 00:27 | Emergency (ER) | payer OTHER ==
[~2023-06-11] VITALS: Ht 167.6 cm; Wt 85.3 kg
[~2023-06-11 00:27] MED LIST changes: +FLUT16SP16 NS; +GLIP5TAB26 PO; +IBUP-1969 PO; +METO25TA3 PO; +MULT-1165 PO; +SYN50 PO; +VITD2000 PO
[2023-06-11 00:32] VITALS: BP_SYST 133; PULSE 106; RESP 18; TEMP 98.3; O2SAT 96
[2023-06-11] MEDS ORDERED: KETOROLAC TROMETHAMINE 30 MG VIAL IVP ONE (01:00)
[2023-06-11] MEDS ORDERED: NACL 0.9% 1,000 ML IV ONE (01:00)
[2023-06-11 02:03] LABS: BASOPHILS # (AUTO) 0.1 K/uL (0.0-0.2); BASOPHILS % (AUTO) 0.7 % (0.0-2.0); EOSINOPHILS # (AUTO) 0.1 K/uL (0.0-0.4); EOSINOPHILS % (AUTO) 0.8 % (0.0-4.0); HEMOGLOBIN 14.4 g/dL (14.0-18.0); LYMPHOCYTES # (AUTO) 2.9 K/uL (1.0-5.5); MEAN CORPUSCULAR HEMOGLOBIN 33 pg (27-31); MEAN CORPUSCULAR HGB CONC 35 % (32-36); MEAN CORPUSCULAR VOLUME 92 fL (79.0-98.0); MONOCYTES # (AUTO) 0.9 K/uL (0.0-1.0); MONOCYTES % (AUTO) 8.1 % (1.7-9.3); NEUTROPHILS # (AUTO) 6.9 K/uL (1.8-7.7); NEUTROPHILS % (AUTO) 63.4 % (40.0-70.0); PLATELET COUNT (AUTO) 253 K/uL (130-430); RED BLOOD CELL COUNT(AUTO) 4.43 MIL/uL (4.2-6.2); RED CELL DISTRIBUTION WIDTH 12.9 % (9.0-15.0); WHITE BLOOD COUNT (AUTO) 10.9 K/uL (4.8-10.8)
[2023-06-11 02:10] LABS: CALCIUM 9.7 mg/dL (8.4-11.0); CREATININE 0.93 mg/dL (0.55-1.30); POTASSIUM 3.6 mmol/L (3.5-5.1)
[2023-06-11 02:15] LABS: ALBUMIN 3.5 g/dL (3.4-4.8); TOTAL BILIRUBIN 0.5 mg/dL (0.0-1.0); TOTAL PROTEIN, SERUM 7.7 g/dL (6.4-8.3)
[2023-06-11 03:00] LABS: BILIRUBIN,URINE NEGATIVE (NEGATIVE); BLOOD, URINE NEGATIVE (NEGATIVE); COLOR,URINE YELLOW (YELLOW); GLUCOSE,URINE 3+ (NEGATIVE); KETONES,URINE NEGATIVE (NEGATIVE); LEUKOCYTE ESTERASE ,URINE NEGATIVE (NEGATIVE); NITRITE, URINE NEGATIVE (NEGATIVE); PROTEIN URINE 2+ (NEGATIVE); UROBILINOGEN,URINE 0.2 (0.2-1.0)
[2023-06-11 03:35] LABS: CLARITY/URINE HAZY (CLEAR)
[2023-06-11 03:36] LABS: BACTERIA,URINE None Seen /HPF (None Seen); RBC,URINE 0-3 /HPF (0-3); WBC,URINE 0-3 /HPF (0-3)
[2023-06-11] MEDS ORDERED: NAPR-1172 PO (03:54)
[2023-06-11 04:13] VITALS: BP_SYST 128; PULSE 88; RESP 18; TEMP 97.5; O2SAT 96
== END 2023-06-11 04:13 | disposition home or self-care (01) ==
LOC: SED 00:27
DX: S39.012A Strain of muscle, fascia and tendon of lower back, initial encounter (principal); R10.31 Right lower quadrant pain; E11.9 Type 2 diabetes mellitus without complications; I10 Essential (primary) hypertension; Z79.899 Other long term (current) drug therapy; X58.XXXA Exposure to other specified factors, initial encounter; Y93.89 Activity, other specified; Y92.89 Other specified places as the place of occurrence of the external cause; Y99.8 Other external cause status
CPT/HCPCS: 99285; 74176; 96374; 96361; 80053; 81001; 85025; 36415; 76376; 81000; 81015; J1885; J7030